=== PATIENT | female | born 1985 | race Caucasian/White ===

== ENCOUNTER 2021-07-12 14:11 | Outpatient (REF) | payer BC, SELFPAY ==
[2021-07-12 15:39] LABS: Erythrocyte Sedimentation Rate 2 MM/HR (0-20)
[2021-07-13 04:58] LABS: Lyme Abs Screen <0.90 index
[2021-07-14 07:16] LABS: Anti Nuclear Antibody Screen NEGATIVE (NEGATIVE)
== END 2021-07-12 14:12 | disposition home or self-care (01) ==
LOC: HO.LAB 14:11
PROVIDERS: PCP Internal Medicine; Visit Provider Psychiatry & Neurology Neurology
DX: F41.9 Anxiety disorder, unspecified (principal)
CPT/HCPCS: 36415; 82550; 85652; 86038; 86039; 86617; 86618